=== PATIENT | female | born 1950 | race Caucasian/White ===

== ENCOUNTER → 2018-09-11 | Outpatient (CLI) | payer MEDICARE ==
--- NOTE | 2018-09-11 10:03 | Diagnostic Imaging Report ---
PROCEDURE: US Renal Bilateral. INDICATION: Decreased renal function with decreased glomerular filtration rate. TECHNIQUE: Multiple real-time grayscale sonographic images were obtained of the kidneys. COMPARISON: None FINDINGS: RIGHT KIDNEY: 10.5 x 4.7 x 4.8 cm. LEFT KIDNEY: 10.8 x 6.2 x 5.8 cm. The kidneys have a generally unremarkable appearance. May be slightly prominent promontory Dromedary hump of the left kidney. There is relatively normal echotexture of the renal parenchyma. No hydronephrosis. URINARY BLADDER: Unremarkable in appearance. IMPRESSION: 1. Unremarkable renal sonogram. Dictated by: Dictated on workstation # [id number]
== END ==
LOC: RAD 07:45
PROVIDERS: ATTEND Nurse Practitioner Family
DX: R94.4 Abnormal results of kidney function studies (principal)
CPT/HCPCS: 76770